=== PATIENT | male | born 1970 | race American Indian/Alaskan Native ===

== ENCOUNTER 2016-12-16 20:02 | Emergency (ER) | payer MEDICAID ==
[2016-12-16 21:10] LABS: Urine Drugs of Abuse Note Disclamer
[2016-12-16 21:33] LABS: Hematocrit 48.6 % (35.5-45.6); Hemoglobin 16.1 gm/dl (11.8-15.2); Mean Corpuscular HGB Conc 33 % (32-34); Mean Corpuscular Hemoglobin 26 pg (28-32); Mean Corpuscular Volume 79 fl (84-94); Platelet Count 263 K/mm3 (140-440); Red Blood Count 6.13 M/mm3 (3.65-5.03); Red Cell Distribution Width 14.9 % (13.2-15.2); White Blood Count 6.7 K/mm3 (4.5-11.0)
[2016-12-16 21:36] LABS: Bacteria,Urine 1+ /HPF (Negative); Bilirubin,Urine NEG (Negative); Blood,Urine NEG (Negative); Ketones,Urine TR mg/dL (Negative); Leukocyte Esterase,Urine LG (Negative); Mucus,Urine FEW /HPF; Nitrite,Urine NEG (Negative); Protein,Urine <15 mg/dL mg/dL (Negative); Urobilinogen,Urine < 2.0 mg/dL (<2.0)
[2016-12-16 21:42] LABS: BUN/Creatinine Ratio 21.17; Calcium 9.7 mg/dL (8.4-10.2); Chloride 89.5 mmol/L (98-107); Potassium 4.1 mmol/L (3.6-5.0)
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
[2016-12-16 22:40] LABS: Blastocytes % (Manual) 0 %; Eosinophils % (Manual) 0 % (0.0-4.3)
[2016-12-16 22:50] LABS: Anisocytosis 1+; Diff Status Complete
[2016-12-16] MEDS ORDERED: MACROBID PO ONE (23:41)
[2016-12-16] MEDS: MACROBID PO SCH (23:50)
[2016-12-17] MEDS: MACROBID PO SCH ×2 (09:45→21:46)
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
[2016-12-17] MEDS ORDERED: COGENTIN PO SCH (22:00)
[2016-12-17] MEDS ORDERED: RisperDAL PO SCH (22:00)
[2016-12-18 07:50] VITALS: BP 132/90
[2016-12-18] MEDS: MACROBID PO SCH (10:47)
--- NOTE | 2016-12-18 17:21 | Progress Note ---
Subjective - Reason for Consult Reason for consult: psych consult - Chief Complaint Chief complaint: 46 year old BM with h/o scpt and cocaine abuse. Patient notes that he is doing better today. Currently notes that he could sleep better but his psychosis is better. He denies any SI/HI/AH/VH. He is not suicidal. He can't really explain a particular reason as to why he is better though. No depression or grandiosity. Mental Status Exam - Vital signs Last Vital Signs Temp 98.4 F 12/18/16 07:48 Pulse 67 12/18/16 07:48 Resp 16 12/18/16 07:48 BP 132/90 12/18/16 07:48 Pulse Ox 99 12/18/16 07:48 - Exam Orientation: time, place, person Affect: normal Mood: appropriate Thought Process: Circumstantial, Tangential Perceptions: none Speech: normal rate and pattern Concentration: distractible Motor activity: normal Level of consciousness: alert Interaction: cooperative Assessment and Plan 46 year old BM with h/o scpt and cocaine abuse. Patient currently denies any active psychosis. No withdrawal symptoms. Plan: psychosis- continue treatment with risperdal and cogentin- pt is tolerating both. no side effects Dispo: need to obtain some collateral and work on proper dispo planning
== END 2016-12-18 21:15 ==
LOC: EEVIPCON 20:02 → ED 20:02
DX: F14.10 Cocaine abuse, uncomplicated (principal); N30.00 Acute cystitis without hematuria; I10 Essential (primary) hypertension; F20.9 Schizophrenia, unspecified; F31.9 Bipolar disorder, unspecified; F17.200 Nicotine dependence, unspecified, uncomplicated
CPT/HCPCS: 36415; 80048; 80307; 81001; 85007; 85025; 99285; G0480; 80320

== ENCOUNTER 2017-01-08 06:40 | Emergency (ER) | payer MEDICAID ==
[2017-01-08 07:50] VITALS: BP 156/96
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
--- NOTE | 2017-01-08 10:47 | Cat Scan Report ---
Cranial CT without contrast. History: Scalp lesion. Findings: The brain parenchyma appears normal. There is no evidence of a mass, hemorrhage, or infarct. The posterior fossa is normal. The ventricles are normal in size and contour. There are no extra-axial collections. The calvarium is intact. There is evidence of mild chronic ethmoid sinusitis. Nasal septal deviation is to the right. There are multiple soft tissue lesions in the scalp. The largest of these is in the left frontoparietal scalp measuring approximately 2.5 x 3.9 cm. The central component of this lesion has lower density approaching fluid density by CT numbers, surrounded by peripheral soft tissue density. A somewhat nodular soft tissue lesions in the left frontal scalp near the vertex. This measures approximately 1.5 x 3.5 cm. A third lesion in the right parietal scalp measures 1.6 x 2.3 cm. A fourth subcentimeter soft tissue lesion is seen in the right frontal scalp. There is no involvement of the calvarium. Impression: 1. No intracranial abnormalities. 2. Multiple soft tissue lesions are seen in the scalp, one of which appears to contain central low density/fluid in the left frontoparietal scalp. There is no bony involvement. These lesions are nonspecific and could represent a large variety of soft tissue lesions.
[2017-01-08] MEDS ORDERED: MOTRIN PO ONE (11:48)
== END 2017-01-08 11:55 | disposition home or self-care (01) ==
LOC: ED 06:40
DX: L02.821 Furuncle of head [any part, except face] (principal); L98.8 Other specified disorders of the skin and subcutaneous tissue; I10 Essential (primary) hypertension; F31.9 Bipolar disorder, unspecified; F20.9 Schizophrenia, unspecified; F17.200 Nicotine dependence, unspecified, uncomplicated
CPT/HCPCS: 70450; 99283

== ENCOUNTER 2017-05-09 22:52 | Emergency (ER) | payer MEDICAID ==
[2017-05-09 23:38] LABS: Basophils # (Auto) 0.1 K/mm3 (0.0-0.1); Basophils % (Auto) 0.9 % (0.0-1.8); Eosinophils # (Auto) 0.3 K/mm3 (0.0-0.4); Hematocrit 38.7 % (35.5-45.6); Hemoglobin 12.3 gm/dl (11.8-15.2); Lymphocytes # (Auto) 2.7 K/mm3 (1.2-5.4); Lymphocytes % (Auto) 38.6 % (13.4-35.0); Mean Corpuscular HGB Conc 32 % (32-34); Mean Corpuscular Volume 82 fl (84-94); Monocytes # (Auto) 0.9 K/mm3 (0.0-0.8); Monocytes % (Auto) 13.2 % (0.0-7.3); Platelet Count 347 K/mm3 (140-440); Red Blood Count 4.74 M/mm3 (3.65-5.03); Red Cell Distribution Width 14.1 % (13.2-15.2)
[2017-05-09 23:46] LABS: BUN/Creatinine Ratio 11; Blood Urea Nitrogen 10 mg/dL (9-20); Calcium 8.7 mg/dL (8.4-10.2); Hemolysis Index 4
[2017-05-09 23:49] LABS: Mean Corpuscular Hemoglobin 26 pg (28-32)
[2017-05-10 05:59] VITALS: BP 135/51
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
== END 2017-05-10 06:55 | disposition home or self-care (01) ==
LOC: ED 22:52 → EEVIPCON 22:52 → ED 05-10 06:55
DX: F32.9 Major depressive disorder, single episode, unspecified (principal); I10 Essential (primary) hypertension; F20.9 Schizophrenia, unspecified
CPT/HCPCS: 36415; 80048; 85025; 99284; G0480; 80320